=== PATIENT | male | born 1995 | race Caucasian/White ===

== ENCOUNTER 2016-12-15 10:48 | Day surgery (SDC) | payer BC ==
[~2016-12-15] VITALS: Ht 182.9 cm; Wt 117.9 kg
[~2016-12-15 10:48] MED LIST: NAPR-681 PO
[2016-12-15] MEDS ORDERED: BACITRACIN ZINC 15GM TUBE TOP ONE (11:24)
[2016-12-15] MEDS ORDERED: BUPIVACAINE/EPINEPH/PF 0.25%/0.0005 10ML ONE (11:24)
[2016-12-15] MEDS ORDERED: NORMAL SALINE 0.9% 10 ML SYR ONE (11:24)
[2016-12-15] MEDS ORDERED: BACITRACIN 50,000 UNITS/VIAL ONE (11:25)
[2016-12-15] MEDS ORDERED: LACTATED RINGERS 1,000 ML IV SCH (11:30)
[2016-12-15] MEDS ORDERED: HYDR-3933 PO (12:49)
[2016-12-15] MEDS ORDERED: MIDAZOLAM HCL 2 MG/2 ML VIAL ONE (12:53)
[2016-12-15] MEDS ORDERED: FENTANYL CITRATE/PF 50MCG/ML 2ML VIAL ONE (13:01)
[2016-12-15] MEDS ORDERED: ONDANSETRON HCL 4MG/2ML VIAL ONE (13:06)
[2016-12-15] MEDS ORDERED: LIDOCAINE HCL 1% 20ML VIAL (Pyxis) INJ ONE (13:06)
[2016-12-15] MEDS ORDERED: METOCLOPRAMIDE HCL 10MG/2ML VIAL ONE (13:06)
[2016-12-15] MEDS ORDERED: PROPOFOL 200MG/20ML VIAL IV ONE (13:06)
[2016-12-15] MEDS ORDERED: CEFAZOLIN SODIUM 1000MG/VIAL ONE (13:06)
[2016-12-15] MEDS ORDERED: METOCLOPRAMIDE HCL 10MG/2ML VIAL IV NR (13:45)
[2016-12-15] MEDS ORDERED: KETOROLAC 30MG/ML VIAL IV NR (13:45)
[2016-12-15] MEDS ORDERED: ONDANSETRON HCL 4MG/2ML VIAL IV PRN (13:45)
== END 2016-12-15 15:00 | disposition home or self-care (01) ==
LOC: OR 10:48
PROVIDERS: ATTEND Orthopaedic Surgery Sports Medicine
DX: T84.098A Other mechanical complication of other internal joint prosthesis, initial encounter (principal)
CPT/HCPCS: 27704; 73600; 88300; A4216; J0171; J0690; J2250; J2405; J2765; J3010; J3490; J7120; J2704